=== PATIENT | male | born 1955 | race Two or more races ===

== ENCOUNTER 2021-01-29 13:14 | Emergency (ER) | payer OTHER ==
[~2021-01-29] VITALS: Ht 185.4 cm; Wt 104.3 kg
[2021-01-29] MEDS ORDERED: FUROSEMIDE 40 MG TAB PO ONE (15:30)
[2021-01-29 17:06] LABS: Basophils # (auto) 0 10 ^3/uL (0-0.2); Basophils % (auto) 0.5 % (0.0-2.0); Eosinophils # (auto) 0.1 10 ^3/uL (0-0.8); Eosinophils % (auto) 2.8 % (0.0-7.0); Hematocrit 29.5 % (41.0-53.0); Hemoglobin 9.4 g/dL (13.5-17.5); Lymphocytes # (auto) 2.1 10 ^3/uL (0.4-5.4); Lymphocytes % (auto) 39.6 % (10.0-50.0); Mean Corpuscular Hemoglobin 25.7 pg (28.0-32.0); Mean Corpuscular Hgb Conc. 31.9 g/dL (32.0-36.0); Mean Corpuscular Volume 80.6 fL (80.0-100.0); Monocytes # (auto) 0.7 10 ^3/uL (0-1.3); Monocytes % (auto) 12.3 % (0.0-12.0); Neutrophils # (auto) 2.4 10 ^3/uL (1.6-8.6); Neutrophils % (auto) 44.8 % (37.0-80.0); Nucleated Red Blood Cells % 0.1 %; Red Blood Cells 3.66 10^6/uL (4.5-5.90); White Blood Cell 5.4 10^3/uL (4.4-10.8)
[2021-01-29 17:07] LABS: Red Cell Distribution Width 16.6 % (11.8-14.3)
[2021-01-29 17:11] LABS: Albumin 2.9 g/dL (3.4-5.0); BUN/Creatinine Ratio 16.1; Calcium 9.1 mg/dL (8.5-10.1); Potassium 4.2 mmol/L (3.5-5.1)
[2021-01-29 17:14] LABS: Bilirubin, Total 1.4 mg/dL (0.2-1.0); Total Protein 6.1 g/dL (6.4-8.2)
[2021-01-29 17:22] LABS: INR 1.34 (0.9-1.15); Partial Thromboplastin Time 29.7 sec (23.6-33.0)
[2021-01-29] MEDS ORDERED: MORPHINE SULFATE 4 MG/ML SYR/VIAL IV ONE (18:30)
[2021-01-29] MEDS ORDERED: IODIXANOL 320MG/ML 100ML BTL IV ONE (20:32)
[2021-01-30] MEDS ORDERED: MIDAZOLAM HCL 2MG/2ML 2ml VIAL (1mg/ml) IV ONE (01:00)
[2021-01-30] MEDS ORDERED: MORPHINE SULFATE 4 MG/ML SYR/VIAL IV ONE (01:00)
[2021-01-30] MEDS ORDERED: diazePAM 2 MG TAB PO ONE ×2 (03:15→06:15)
[2021-01-30 08:45] VITALS: BP 131/68
== END 2021-01-30 15:00 | disposition home or self-care (01) ==
LOC: ER 13:14 → EDBD 13:14 → ER 01-30 15:00
DX: G89.29 Other chronic pain (principal); M54.50 Low back pain, unspecified; D64.9 Anemia, unspecified; M79.604 Pain in right leg; M79.605 Pain in left leg; E43 Unspecified severe protein-calorie malnutrition; Z68.30 Body mass index [BMI] 30.0-30.9, adult; Z87.19 Personal history of other diseases of the digestive system; Z20.822 Contact with and (suspected) exposure to COVID-19
CPT/HCPCS: 36415; 71045; 72132; 80053; 83880; 85025; 85610; 85730; 87426; 93970; 96374; 96376; 99285; J2270; J2250; Q9967